=== PATIENT | male | born 1940 | race Caucasian/White ===

== ENCOUNTER → 2023-07-19 | Outpatient (REF) | LOC: M PLAIMG 14:16 | PROVIDERS: ATTEND Nurse Practitioner Family | DX: J44.9 Chronic obstructive pulmonary disease, unspecified (principal) ==

== ENCOUNTER → 2023-08-03 | Outpatient (CLI) | payer MEDICARE, OTHER | LOC: M CARPUL 08:04 | PROVIDERS: ATTEND Nurse Practitioner Family | DX: J44.9 Chronic obstructive pulmonary disease, unspecified (principal) ==